=== PATIENT | female | born 1995 | race African-American/Black ===

== ENCOUNTER 2017-04-22 14:34 | Emergency (ER) | payer MEDICAID ==
[~2017-04-22] VITALS: Ht 162.6 cm; Wt 75.0 kg
[~2017-04-22 14:34] MED LIST: PREN1TAB30 PO
[2017-04-22 14:36] VITALS: BP 127/64; PULSE 84; RESP 16; TEMP 98.6; O2SAT 98
--- NOTE | 2017-04-22 15:20 | PD ---
Physical Exam Date Seen by Provider: April 22, 2017 Time Seen by Provider: 15:16 Narrative 22 y/o female here with left ear and facial pain for the past several days. No fever or Sore throat. has had "Bleeding" from Left earing area. Pain is 1/10. V/S Stable Awaiting Bed Placement. Data Data Last Documented VS Vital Signs Date Time Temp Pulse Resp B/P Pulse Ox O2 Delivery O2 Flow Rate FiO2 04/22/17 14:36 98.6 84 16 127/64 98 MDM Medical Record Reviewed: Yes Supervised Visit with SACHIN: Yes Condition: Stable David Castillo April 22, 2017 15:20
--- NOTE | 2017-04-22 16:19 | PD ---
HPI Chief Complaint: ENT Complaint Time Seen by Provider: 16:18 Travel History International Travel<30 days: No Contact w/Intl Traveler<30days: No Traveled to known affect area: No History of Present Illness HPI 22-year-old female presents to the emergency department with complaint of left upper tooth pain, left facial pain, left ear pain 1 week. Denies fever or vomiting. So she has an infection. Also reports that when she takes out her earring there is "bleeding." She denies swelling, pain, or edema to her earlobe. Denies upper respiratory symptoms such as sore throat, cough, nasal congestion. Has not taken any medications or tried any joints to alleviate her symptoms. Has no other medical complaints. No other modifying factors or associated signs and symptoms. PFSH Past Medical History Anxiety: Yes Depression: Yes Cardiovascular Problems: No Diminished Hearing: No Gastrointestinal Disorders: No Psychiatric: Yes Reproductive: No Immunizations Current: Yes Seizures: No PNEUMOCCOCAL Vaccine (Year): 2 : 4 Para: 1 Miscarriage: 3 Past Surgical History Section: Yes Gynecologic Surgery: Yes () Other Surgery: No Social History Alcohol Use: Yes (on occasion) Tobacco Use: Yes (QUIT 3 MONHS AGO) Substance Use: No Allergies-Medications (Allergen,Severity, Reaction): Coded Allergies: Pineapple (Verified Allergy, Severe, RASH, 04/22/17) Uncoded Allergies: GRAPE SODA (Allergy, Severe, RASH, 11/22/11) Reported Meds & Prescriptions Reported Meds & Active Scripts Active Amoxicillin 500 Mg Cap 500 Mg PO BID 10 Days Ibuprofen 800 Mg Tab 800 Mg PO Q6HR PRN Review of Systems Except as stated in HPI: all other systems reviewed are Neg Physical Exam Narrative GENERAL: Well-nourished, well-developed female patient, in no acute distress; afebrile, nontoxic-appearing SKIN: Warm and dry. HEAD: Atraumatic. Normocephalic. No facial edema, erythema, tenderness on palpation. No lymphadenopathy. EYES: Pupils equal and round. No scleral icterus. No injection or drainage. ENT: Mucosa pink and moist. Airway patent. EARS: Bilateral pinnae and external canals appear within normal limits. Bilateral tympanic membranes without erythema, dullness or perforation. Left earlobe with earing intact and there is no sign of bleeding, erythema, edema, drainage. MOUTH: Mucous membranes moist, no lesions, tongue and gums appear normal. Left upper tooth #13 with dental cavity and tenderness on palpation; stranding gingiva is without erythema, edema, drainage; no obvious abscess noted. NECK: Trachea midline. No lymphadenopathy. CARDIOVASCULAR: Regular rate. RESPIRATORY: No accessory muscle use. GASTROINTESTINAL: Flat. MUSCULOSKELETAL: No obvious deformities. No clubbing. No cyanosis. No edema. NEUROLOGICAL: Awake and alert. Oriented 3. No obvious cranial nerve deficits. Motor grossly within normal limits. Normal speech. PSYCHIATRIC: Appropriate mood and affect; insight and judgment normal. Data Data Last Documented VS Vital Signs Date Time Temp Pulse Resp B/P Pulse Ox O2 Delivery O2 Flow Rate FiO2 04/22/17 14:36 98.6 84 16 127/64 98 MDM Medical Decision Making Medical Screen Exam Complete: Yes Emergency Medical Condition: Yes Medical Record Reviewed: Yes Differential Diagnosis Dentalgia, otitis media, otitis externa, skin infection, sinusitis Narrative Course 22-year-old female with dentalgia to the left upper tooth #13. She has a dental cavity. No obvious abscess. No facial edema or erythema. Left ear is without any signs of infection and tympanic membrane is normal appearing. Her left earlobe is without signs of infection. Patient is afebrile and nontoxic- appearing. She denies fever, vomiting. Amoxicillin, ibuprofen prescribed for home. Instructed patient to follow up with dentist. Emergency dental information sheet provided. Patient verbalizes understanding and agreement with treatment plan. Patient is medically cleared and stable for discharge. Discussed reasons to return to the emergency department. Instructed patient to follow up with primary care provider. Patient agrees with treatment plan. The patients vital signs are stable and the patient is stable for outpatient follow- up and treatment. Patient discharged home, stable and in no acute distress. Diagnosis Primary Impression: Dentalgia Referrals: Dentist Primary Care Physician Patient Instructions: Dental Abscess (ED), Dental Caries (ED), General Instructions, Toothache (ED) Departure Forms: Tests/Procedures, Work Release Enter return to work date: April 23, 2017 Additional Instructions: Complete full course of antibiotics Ibuprofen as directed and as needed to reduce pain and inflammation Use Magic mouthwash rinse as directed and as needed to decrease pain Warm compresses to the affected area Follow-up with dentist Follow-up with primary care provider Return to emergency department immediately with worsening of symptoms Med/Other Pt SpecificInfo: Prescription(s) given Scripts Amoxicillin 500 Mg [id number] Mg PO BID 10 Days Ref 0 Prov:Jennifer Henderson 04/22/17 Ibuprofen 800 Mg [id number] Mg PO Q6HR PRN (PAIN) #30 TAB Ref 0 Prov:Jennifer Henderson 04/22/17 Disposition: 01 DISCHARGE HOME Condition: Stable Jennifer Henderson April 22, 2017 16:19
[2017-04-22] MEDS ORDERED: AMOX500C PO (16:22)
[2017-04-22] MEDS ORDERED: IBUP800T23 PO (16:22)
== END 2017-04-22 16:43 | disposition home or self-care (01) ==
LOC: NEPK 14:34
DX: K08.89 Other specified disorders of teeth and supporting structures (principal); Z87.891 Personal history of nicotine dependence
CPT/HCPCS: 99283

== ENCOUNTER 2017-08-22 20:02 | Emergency (ER) | payer SELFPAY ==
[~2017-08-22] VITALS: Ht 165.1 cm; Wt 74.0 kg
[~2017-08-22 20:02] MED LIST changes: +AMOX500C PO; +IBUP800T23 PO; -PREN1TAB30 PO
[2017-08-22 20:16] VITALS: BP 127/70; PULSE 88; RESP 18; TEMP 98.7
[2017-08-22] MEDS ORDERED: PERM5CRE TOPICAL (20:52)
--- NOTE | 2017-08-22 20:52 | PD ---
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 She thinks that she has developed scabies on her hands. States symptoms been going on for the past few days pruritic, tracking proximally. No fevers predominantly on her hands. No other symptoms of any close contacts at home. Symptoms are mild , gradually worsening. PFSH Past Medical History Weight (Kg): 3 Anxiety: Yes Depression: Yes Cardiovascular Problems: No Diminished Hearing: No Gastrointestinal Disorders: No Heparin Induced Thrombocytopen: No Psychiatric: Yes Reproductive: No Immunizations Current: Yes Seizures: No Tetanus Vaccination: Unknown Influenza Vaccination: No PNEUMOCCOCAL Vaccine (Year): 2 ?: Not LMP: 3 weeks ago : 4 Para: 1 Miscarriage: 3 Past Surgical History Section: Yes Gynecologic Surgery: Yes () Other Surgery: No Social History Alcohol Use: Yes (on occasion) Tobacco Use: Yes (QUIT 3 MONHS AGO) Substance Use: No Allergies-Medications (Allergen,Severity, Reaction): Coded Allergies: pineapple (Unverified Allergy, Severe, RASH, 08/22/17) Uncoded Allergies: GRAPE SODA (Allergy, Severe, RASH, 11/22/11) Reported Meds & Prescriptions Reported Meds & Active Scripts Active Permethrin Topical 5% (Permethrin) 5% Cream 1 Applic TOPICAL ONCE Apply head to toe and leave on skin for 8-10 hours, then shower off. Review of Systems Except as stated in HPI: all other systems reviewed are Neg Physical Exam Narrative GENERAL: Well-nourished, well-developed patient. SKIN: Focused skin assessment warm/dry. There are a few dry raised lesions on bilateral dorsum of the hands, there are 2 lesions on the dorsum of left hand/ distal forearm which do show some proximal tracking consistent with scabies slightly raised. No purulence no erythema. HEAD: Normocephalic. EYES: No scleral icterus. No injection or drainage. NECK: Supple, trachea midline. No JVD or lymphadenopathy. CARDIOVASCULAR: Regular rate and rhythm without murmurs, gallops, or rubs. RESPIRATORY: Breath sounds equal bilaterally. No accessory muscle use. GASTROINTESTINAL: Abdomen soft, non-tender, nondistended. MUSCULOSKELETAL: No cyanosis, or edema. BACK: Nontender without obvious deformity. No CVA tenderness. Data Data Last Documented VS Vital Signs Date Time Temp Pulse Resp B/P (MAP) Pulse Ox O2 Delivery O2 Flow Rate FiO2 08/22/17 20:16 98.7 88 18 127/70 (89) [facility] Medical Decision Making Medical Screen Exam Complete: Yes Emergency Medical Condition: Yes Differential Diagnosis Scabies, bedbugs, bug bites. Narrative Course Patient does have a few lesions consistent with scabies, discussed treating the house at home as well as treating herself with permethrin. Discussed signs symptoms that should prompt return to ED Diagnosis Primary Impression: Scabies Additional Instructions: Wash all linens in the house, taken a stuffed animals in place and seal plastic bag in a dark for a week. Med/Other Pt SpecificInfo: Prescription(s) given Scripts Permethrin Topical 5% (Permethrin Topical 5%) 5% Cream 1 APPLIC TOPICAL ONCE for Scabies, #1 TUBE 1 Refill Apply head to toe and leave on skin for 8-10 hours, then shower off. Prov: Houston Pickard MD 08/22/17 Disposition: 01 DISCHARGE HOME Condition: Stable Houston Pickard MD Aug 22, 2017 20:52
== END 2017-08-22 21:07 | disposition home or self-care (01) ==
LOC: PHED 20:02 → PHEFT 21:07
DX: B86 Scabies (principal)
CPT/HCPCS: 99283